=== PATIENT | female | born 1955 | race Two or more races ===

== ENCOUNTER 2016-10-23 07:18 | Emergency (ER) | payer SELFPAY ==
[~2016-10-23] VITALS: Ht 167.6 cm; Wt 59.0 kg
[2016-10-23 07:22] VITALS: BP 125/74
== END 2016-10-23 09:15 | disposition home or self-care (01) ==
LOC: ER 07:23
DX: T18.9XXA Foreign body of alimentary tract, part unspecified, initial encounter (principal); Z88.2 Allergy status to sulfonamides; E03.9 Hypothyroidism, unspecified; F10.20 Alcohol dependence, uncomplicated
CPT/HCPCS: A4606; Z7610